=== PATIENT | male | born 1940 | race Caucasian/White ===

== ENCOUNTER 2023-01-15 12:04 | Emergency (ER) | payer MEDICARE, OTHER ==
[~2023-01-15] VITALS: Ht 177.8 cm; Wt 85.7 kg
[2023-01-15] MEDS ORDERED: ASPIRIN 81 MG CHEW (CHILDREN'S ASA) PO ONE (12:15)
[2023-01-15 12:21] LABS: BASOPHILS % (AUTO) 1 % (0-10); EOSINOPHILS # (AUTO) 0.1 10^3/uL (0.0-0.3); EOSINOPHILS % (AUTO) 1 % (0-10); HEMATOCRIT 42 % (40-54); LYMPHOCYTES # (AUTO) 1.6 10^3/uL (1.0-4.0); LYMPHOCYTES % (AUTO) 26 % (12-44); MEAN CORPUSCULAR HEMOGLOBIN 26 pg (25-34); MEAN CORPUSCULAR HGB CONC 33 g/dL (32-36); MEAN CORPUSCULAR VOLUME 78 fL (80-99); MEAN PLATELET VOLUME 9.8 fL (9.0-12.2); MONOCYTES # (AUTO) 0.5 10^3/uL (0.0-1.0); MONOCYTES % (AUTO) 9 % (0-12); NEUTROPHILS # (AUTO) 3.7 10^3/uL (1.8-7.8); NEUTROPHILS % (AUTO) 63 % (42-75); PLATELET COUNT 163 10^3/uL (130-400)
[2023-01-15 12:35] LABS: INR 1.1 (0.8-1.4); PROTHROMBIN TIME PATIENT 14.5 SEC (12.2-14.7)
[2023-01-15 12:43] LABS: ALANINE AMINOTRANSFERASE 13 U/L (0-55); ALBUMIN 4.1 GM/DL (3.2-4.5); ALKALINE PHOSPHATASE 133 U/L (40-136); BILIRUBIN,TOTAL 1.4 MG/DL (0.1-1.0); BUN/CREATININE RATIO 10; CALCIUM 8.9 MG/DL (8.5-10.1); CARBON DIOXIDE 25 MMOL/L (21-32); CHLORIDE 100 MMOL/L (98-107); CREATININE SERUM 1.28 MG/DL (0.60-1.30); GFR ESTIMATED 56; GLUCOSE 109 MG/DL (70-105); LIPASE 21 U/L (8-78); MAGNESIUM 2.3 MG/DL (1.6-2.4); POTASSIUM 4.4 MMOL/L (3.6-5.0); SODIUM 137 MMOL/L (135-145); TOTAL PROTEIN 7.1 GM/DL (6.4-8.2)
--- NOTE | 2023-01-15 12:50 | Diagnostic Imaging Report ---
EXAMINATION: Chest 2 view HISTORY: Chest pain, Cough COMPARISON: None available. FINDINGS: Heart size and pulmonary vasculature are normal. The lungs are clear without consolidation, pleural effusion, or pneumothorax. The osseous structures are intact. Small metallic fragments within the right axilla. IMPRESSION: 1. No acute radiographic abnormality in the chest. Dictated by: Dictated on workstation # [id number]
--- NOTE | 2023-01-15 13:02 | ED Chest Pain ---
General Chief Complaint: Chest Pain Stated Complaint: CHEST PAIN Nursing Triage Note: PT AMBULATE TO ROOM FS05 WITHOUT DIFFICULTY WITH C/O CHEST PAIN LAST NIGHT AND DIZZYNESS "FOR MONTHS". PT DENIES CHEST PAIN TODAY. Source: patient, family Exam Limitations: no limitations History of Present Illness Date Seen by Provider: Jan 15, 2023 Time Seen by Provider: 12:05 Initial Comments This 82-year-old gentleman presents to the emergency room accompanied by his with concerns about left lower lateral chest pain that was sharp, intermittent, and brief occurring last night. He has not had any chest pain today. He reports some recent cough with mucus production, headache, and dizziness. EKG was performed at urgent care revealing bigeminy. He was referred to the emergency room for further evaluation. His cough has been present for about a month. He reports there was fever and chills earlier in the illness. He has a an appointment in February or March with his primary care provider. Dr. Figueroa is his primary care provider. Allergies and Home Medications Allergies Coded Allergies: No Known Drug Allergies (Unverified , 01/15/23) Patient Home Medication List Home Medication List Reviewed: Yes Metoprolol Succinate (Metoprolol Succinate) 50 Mg Tab.er.24h, 50 MG PO DAILY Prescribed by: MICHAEL BUTTS on 01/15/23 1310 Review of Systems Review of Systems Constitutional: no symptoms reported EENTM: See HPI Respiratory: See HPI Cardiovascular: See HPI Gastrointestinal: No Symptoms Reported Genitourinary: No Symptoms Reported Musculoskeletal: no symptoms reported Skin: no symptoms reported Psychiatric/Neurological: No Symptoms Reported Endocrine: No Symptoms Reported Past Iajonue-Zhaphx-Mcwcvb Hx Patient Social History Tobacco Use?: No Smoking Status: Never a Smoker Smokeless Tobacco Frequency: Never a User Use of E-Cig and/or Vaping dev: No Use of E-Cig and/or Vaping Jhonny: Never a User Substance use?: No Alcohol Use?: No Past Medical History Surgeries: Yes (Hydrocele) Orthopedic (Rotator cuff) Respiratory: Yes COPD Cardiac: No Neurological: No Genitourinary: Yes (Hydrocele) Gastrointestinal: No Musculoskeletal: No Endocrine: No HEENT: No Cancer: No Psychosocial: No Physical Exam Vital Signs Vital Signs - First Documented 01/15/23 12:04 Temp 36.8 Pulse 84 Resp 17 B/P (MAP) 164/62 (96) O2 Delivery Room Air Capillary Refill : Less Than 3 Seconds Height, Weight, BMI Height: '" Weight: lbs. oz. kg; 27.00 BMI Method: General Appearance: No Apparent Distress, WD/WN HEENT: PERRL/EOMI, TMs Normal, Normal ENT Inspection, Other (Oropharynx somewhat dry, postnasal drainage noted in the posterior pharynx) Neck: Normal Inspection; No JVD Respiratory: Chest Non Tender, Lungs Clear, Normal Breath Sounds, No Accessory Muscle Use, No Respiratory Distress Cardiovascular: No Edema, No Murmur, Normal Peripheral Pulses (Left radial pulse), Other (Irregularly irregular from bigeminy) Gastrointestinal: Normal Bowel Sounds, Soft; No Distended; Tenderness (Sore abdominal muscles centrally from coughing) Extremity: Normal Inspection, Non Tender, No Pedal Edema Neurologic/Psychiatric: Alert, Oriented x3, No Motor/Sensory Deficits, Normal Mood/Affect Skin: Normal Color, Warm/Dry Progress/Results/Core Measures Results/Orders Lab Results Laboratory Tests Test 01/15/23 12:18 01/15/23 12:22 Range/Units White Blood Count 6.0 4.3-11.0 10^3/uL Red Blood Count 5.38 4.30-5.52 10^6/uL Hemoglobin 14.0 13.3-17.7 g/dL Hematocrit 42 40-54 % Mean Corpuscular Volume 78 L 80-99 fL Mean Corpuscular Hemoglobin 26 25-34 pg Mean Corpuscular Hemoglobin Concent 33 32-36 g/dL Red Cell Distribution Width 13.8 10.0-14.5 % Platelet Count 163 130-400 10^3/uL Mean Platelet Volume 9.8 9.0-12.2 fL Immature Granulocyte % (Auto) 0 % Neutrophils (%) (Auto) 63 42-75 % Lymphocytes (%) (Auto) 26 12-44 % Monocytes (%) (Auto) 9 0-12 % Eosinophils (%) (Auto) 1 0-10 % Basophils (%) (Auto) 1 0-10 % Neutrophils # (Auto) 3.7 1.8-7.8 10^3/uL Lymphocytes # (Auto) 1.6 1.0-4.0 10^3/uL Monocytes # (Auto) 0.5 0.0-1.0 10^3/uL Eosinophils # (Auto) 0.1 0.0-0.3 10^3/uL Basophils # (Auto) 0.0 0.0-0.1 10^3/uL Immature Granulocyte # (Auto) 0.0 0.0-0.1 10^3/uL Prothrombin Time 14.5 12.2-14.7 SEC INR Comment 1.1 0.8-1.4 Activated Partial Thromboplast Time 35 24-35 SEC Sodium Level 137 135-145 MMOL/L Potassium Level 4.4 3.6-5.0 MMOL/L Chloride Level 100 98-107 MMOL/L Carbon Dioxide Level 25 21-32 MMOL/L Anion Gap 12 5-14 MMOL/L Blood Urea Nitrogen 13 7-18 MG/DL Creatinine 1.28 0.60-1.30 MG/DL Estimat Glomerular Filtration Rate 56 BUN/Creatinine Ratio 10 Glucose Level 109 H 70-105 MG/DL Calcium Level 8.9 8.5-10.1 MG/DL Corrected Calcium 8.8 8.5-10.1 MG/DL Magnesium Level 2.3 1.6-2.4 MG/DL Total Bilirubin 1.4 H 0.1-1.0 MG/DL Aspartate Amino Transf (AST/SGOT) 19 5-34 U/L Alanine Aminotransferase (ALT/SGPT) 13 0-55 U/L Alkaline Phosphatase 133 40-136 U/L Myoglobin 72.7 H <72.0 NG/ML Troponin I < 0.30 <0.30 NG/ML C-Reactive Protein 1.21 H <0.50 MG/DL Total Protein 7.1 6.4-8.2 GM/DL Albumin 4.1 3.2-4.5 GM/DL Lipase 21 8-78 U/L Influenza Type A (RT-PCR) Not Detected Not Detecte Influenza Type B (RT-PCR) Not Detected Not Detecte SARS-CoV-2 RNA (RT-PCR) Not Detected Not Detecte My Orders Orders - MICHAEL EDGAR MD Cbc With Automated Diff (01/15/23 12:15) Magnesium (01/15/23 12:15) Ekg Tracing (01/15/23 12:15) Comprehensive Metabolic Panel (01/15/23 12:15) Myoglobin Serum (01/15/23 12:15) Protime With Inr (7/14/23 12:15) Partial Thromboplastin Time (01/15/23 12:15) O2 (01/15/23 12:15) Monitor-Rhythm Ecg Trace Only (01/15/23 12:15) Lipid Panel (01/16/23 06:00) Aspirin Chewable Tablet (Baby Aspirin Ch (01/15/23 12:15) Ed Iv/Invasive Line Start (01/15/23 12:15) Troponin I Fs (01/15/23 12:15) Crp Fs (01/15/23 12:15) Lipase (01/15/23 12:15) Covid 19 Inhouse Test (01/15/23 12:15) Influenza A And B By Pcr (01/15/23 12:15) Chest Pa/Lat (2 View) (01/15/23 12:22) Metoprolol Succinate (Xl) Tab (Toprol Xl (01/15/23 13:15) Medications Given in ED Current Medications Medications Dose Ordered Sig/Abel Route Start Time Stop Time Status Last Admin Dose Admin Aspirin 324 mg ONCE ONCE PO 01/15/23 12:15 01/15/23 12:17 DC 01/15/23 12:48 324 MG Vital Signs/I&O 01/15/23 12:04 Temp 36.8 Pulse 84 Resp 17 B/P (MAP) 164/62 (96) O2 Delivery Room Air Blood Pressure Mean: 96 Progress Progress Note #1: Time: 12:59 Progress Note I escorted this patient to the exam room at 1205. Patient was interviewed and examined. His contributed to the history. Patient's primary complaint was some sharp pain in the left lower lateral chest that was intermittent last night. He has not experienced any chest pain 2-day. EKG was reviewed and interpreted by me. Frequent PVCs were noted with intermittent bigeminy. No ST elevation or depression, other abnormal intervals, or axis deviation was noted. Chest x-rays were reviewed by me and interpreted as unremarkable. Radiologist report concurred without an potation as noted below. Labs were reviewed and interpreted by me in their entirety including CBC, CMP, troponin, magnesium, and myoglobin. There were few labs just slightly outside of reference range but none were clinically relevant. Influenza and COVID-19 swabs were negative. Progress Note #2: Time: 13:07 Progress Note Given the negative work-up in the emergency room other than bigeminy and PVCs noted on EKG, absence of chest pain today, and stable status, patient is being discharged. I did consult Dr. Guidry prior to discharge. He recommended initiating treatment with beta-blockers and follow-up with cardiology within the next week. See discharge instructions for further discussion. The first dose of Toprol-XL was administered in the ER. Flonase was recommended for patient's postnasal drip. His reports they have some at home. Initial ECG Impression Date: Jan 15, 2023 Initial ECG Impression Time: 12:10 Initial ECG Rate: 91 Comment Sinus rhythm with frequent PVCs and intermittent bigeminy. No ischemic ST elevation or depression. No abnormal intervals or axis deviation outside of PVCs. Diagnostic Imaging Diagonstic Imaging: Xray Plain Films/CT/US/NM/MRI: chest Comments NAME: RYAN CINTRON [facility] REC#: [id number] PT STATUS: REG ER : 1940 PHYSICIAN: MICHAEL EDGAR MD ADMIT DATE: 01/15/23/ER FS Draft Date of Exam:01/15/23 CHEST PA/LAT (2 VIEW) EXAMINATION: Chest 2 view HISTORY: Chest pain, Cough COMPARISON: None available. FINDINGS: Heart size and pulmonary vasculature are normal. The lungs are clear without consolidation, pleural effusion, or pneumothorax. The osseous structures are intact. Small metallic fragments within the right axilla. IMPRESSION: 1. No acute radiographic abnormality in the chest. Dictated on workstation # [id number] Dict: 01/15/23 1248 Trans: 01/15/23 1249 [id number] Interpreted by: NEMESIO STRICKLAND DO Departure Impression Primary Impression: Atypical chest pain Additional Impressions: Bigeminy Cough Qualified Codes: R05.9 - Cough, unspecified Disposition: 01 HOME, SELF-CARE Condition: Improved Departure-Patient Inst. Decision time for Depature: 13:08 Referrals: JAQUAN FIGUEROA MD (PCP) Primary Care Physician KERVIN ALAS MD FACP FAC CCDS ACE MEADOWS MD Patient Instructions: Chest Pain, Ventricular premature beats Add. Discharge Instructions: Start taking your prescription for Toprol-XL (metoprolol succinate) tomorrow. Please follow-up with your primary care provider as soon as possible and with a [employer] consultant within the next week. Contact information for the cardiologists Dr. Meadows and Dr. Alas is listed below. You may take Tylenol (acetaminophen) up to 1000 mg every 6 hours as needed for your chest discomfort and sore abdominal muscles. Take aspirin 81 mg daily until otherwise instructed. Return to the emergency room if you have worsening symptoms despite following these instructions. All discharge instructions reviewed with patient and/or family. Voiced understanding. Scripts Metoprolol Succinate (Metoprolol Succinate) 50 Mg Tab.er.24h 50 MG PO DAILY, #30 TAB Prov: MICHAEL EDGAR MD 01/15/23 Copy Copies To 1: JAQUAN FIGUEROA MD, JOSHUA T MD Jan 15, 2023 13:02
[2023-01-15] MEDS ORDERED: METO50TA7 PO (13:10)
[2023-01-15] MEDS ORDERED: meTOproloL SUCCINATE 50 MG (TOPROL XL) TAB PO SCH (13:15)
[2023-01-15 13:18] VITALS: BP 161/84
== END 2023-01-15 13:18 | disposition home or self-care (01) ==
LOC: ER FS 12:06
DX: R07.89 Other chest pain (principal); R05.9 Cough, unspecified; R00.8 Other abnormalities of heart beat; I49.3 Ventricular premature depolarization; Z28.310 Unvaccinated for COVID-19; Z20.822 Contact with and (suspected) exposure to COVID-19
CPT/HCPCS: 36415; 71046; 80053; 83690; 83735; 83874; 84484; 85025; 85610; 85730; 86141; 87636; 93005; 93041